=== PATIENT | male | born 1985 | race Caucasian/White ===

== ENCOUNTER 2018-02-13 11:30 | Emergency (ER) | payer MEDICAID ==
[~2018-02-13] VITALS: Ht 172.7 cm; Wt 151.9 kg
[~2018-02-13 11:30] MED LIST: CYCL-1 PO; HYDR-4353 PO; MIRT15TA PO; VENL150C2 PO
[2018-02-13 11:45] VITALS: BP 123/93
[2018-02-13] MEDS ORDERED: ibuprofen 200mg tablet PO ONE (14:15)
== END 2018-02-13 14:43 | disposition home or self-care (01) ==
LOC: ER 11:31
DX: G89.29 Other chronic pain (principal); M54.2 Cervicalgia; G43.909 Migraine, unspecified, not intractable, without status migrainosus; F41.9 Anxiety disorder, unspecified; F32.9 Major depressive disorder, single episode, unspecified; F12.10 Cannabis abuse, uncomplicated; Z59.0 Homelessness; Z56.0 Unemployment, unspecified; Z88.0 Allergy status to penicillin; Z88.1 Allergy status to other antibiotic agents
CPT/HCPCS: 99282

== ENCOUNTER 2018-03-09 18:48 | Emergency (ER) | payer MEDICAID ==
[~2018-03-09] VITALS: Ht 172.7 cm; Wt 69.5 kg
[2018-03-09 18:57] VITALS: BP 116/72
[2018-03-09] MEDS ORDERED: OLANZapine 2.5MG tablet PO SCH (20:00)
[2018-03-09] MEDS ORDERED: OLANZapine 5mg rapidly disint. tablet PO SCH (20:02)
== END 2018-03-09 20:18 | disposition home or self-care (01) ==
LOC: ER 18:49
DX: R44.3 Hallucinations, unspecified (principal); F19.10 Other psychoactive substance abuse, uncomplicated; G89.29 Other chronic pain; F41.9 Anxiety disorder, unspecified; F31.9 Bipolar disorder, unspecified; F17.200 Nicotine dependence, unspecified, uncomplicated; F12.10 Cannabis abuse, uncomplicated; F15.10 Other stimulant abuse, uncomplicated; Z59.0 Homelessness; Z56.0 Unemployment, unspecified; F10.10 Alcohol abuse, uncomplicated; Z88.1 Allergy status to other antibiotic agents; Z88.0 Allergy status to penicillin; Z88.8 Allergy status to other drugs, medicaments and biological substances; Z79.899 Other long term (current) drug therapy
CPT/HCPCS: 99284

== ENCOUNTER 2018-07-15 18:53 | Emergency (ER) | payer MEDICAID ==
[~2018-07-15] VITALS: Ht 172.7 cm; Wt 72.7 kg
[2018-07-15 19:14] VITALS: BP 130/78
[2018-07-15] MEDS ORDERED: proparacaine 0.5% ophthalmic drops 15ml LEFTEYE ONE (20:25)
[2018-07-15] MEDS ORDERED: IBUP-1984 PO (20:53)
[2018-07-15] MEDS ORDERED: ERYT1OIN6 LEFTEYE (20:53)
[2018-07-15] MEDS ORDERED: HYDROcodone/acetaminophen 10/325mg tab PO ONE (21:00)
== END 2018-07-15 21:26 | disposition home or self-care (01) ==
LOC: ER 18:54
DX: S05.02XA Injury of conjunctiva and corneal abrasion without foreign body, left eye, initial encounter (principal); G43.909 Migraine, unspecified, not intractable, without status migrainosus; G89.29 Other chronic pain; F12.90 Cannabis use, unspecified, uncomplicated; F15.90 Other stimulant use, unspecified, uncomplicated; Z98.890 Other specified postprocedural states; Z56.0 Unemployment, unspecified; Z59.0 Homelessness; Z88.1 Allergy status to other antibiotic agents; Z88.0 Allergy status to penicillin; Z88.8 Allergy status to other drugs, medicaments and biological substances; Z79.899 Other long term (current) drug therapy; W22.8XXA Striking against or struck by other objects, initial encounter; Y93.89 Activity, other specified; Y92.89 Other specified places as the place of occurrence of the external cause; Y99.8 Other external cause status
CPT/HCPCS: 99283

== ENCOUNTER 2019-03-26 05:07 | Emergency (ER) | payer MEDICAID ==
[~2019-03-26] VITALS: Ht 172.7 cm; Wt 77.3 kg
[2019-03-26 05:09] VITALS: BP 128/86
--- NOTE | 2019-03-26 05:31 | NUR ---
States he wants to cut his jugulars out just like he tried to cut out his right artery in our parking lot in the past. He states that he "occasionally" uses "all the drugs" including herion and meth. He is currently staying at the [facility].
[2019-03-26 06:19] LABS: BASOPHILS # (AUTO) 0.1 X10'3 (0-0.2); BASOPHILS % (AUTO) 0.8 % (0-1); EOSINOPHILS # (AUTO) 0.2 X10'3 (0-0.9); EOSINOPHILS % (AUTO) 2.3 % (0-6); HEMATOCRIT 49.2 % (42.0-52.0); HEMOGLOBIN 17.6 g/dl (14.0-17.9); LYMPHOCYTES # (AUTO) 2.8 X10'3 (1.1-4.8); LYMPHOCYTES % (AUTO) 31.9 % (21-51); MEAN CORPUSCULAR HEMOGLOBIN 32.6 PG (27.0-31.0); MEAN CORPUSCULAR HGB CONC 35.7 g/dL (33.0-36.5); MEAN CORPUSCULAR VOLUME 91.2 FL (78-98); MEAN PLATELET VOLUME 8.4 FL (7.4-10.4); MONOCYTES # (AUTO) 0.8 X10'3 (0-0.9); MONOCYTES % (AUTO) 8.5 % (2-12); NEUTROPHILS % (AUTO) 56.5 % (42-75); PLATELET COUNT 235 X10'3 (140-440); RED BLOOD COUNT 5.39 X10'6 (4.70-6.10); RED CELL DISTRIBUTION WIDTH 13.9 % (11.5-14.5); WHITE BLOOD COUNT 8.9 X10'3 (4.5-11.0)
[2019-03-26 06:35] LABS: ALANINE AMINOTRANSFERASE 29 U/L (12-78); ALBUMIN 4.1 G/DL (3.4-5.0); ALBUMIN/GLOBULIN RATIO 1.1 (1.1-1.5); ALKALINE PHOSPHATASE 91 IU/L (46-116); ANION GAP 11 (8-16); ASPARTATE AMINO TRANSFERASE 19 U/L (10-37); BILIRUBIN,TOTAL 0.5 MG/DL (0.1-1.0); BLOOD UREA NITROGEN 11 MG/DL (7-18); BUN/CREATININE RATIO 11.5 (5.4-32.0); CALCIUM 8.9 MG/DL (8.5-10.1); CHLORIDE 103 MMOL/L (99-107); CREATININE 0.96 MG/DL (0.60-1.10); ETHANOL 0.094 GM/DL (0.0-0.010); GLUCOSE 82 MG/DL (70-104); POTASSIUM 3.5 MMOL/L (3.5-5.1); SODIUM 141 MMOL/L (135-145); TOTAL CARBON DIOXIDE 27.5 MMOL/L (24-32); eGFR 90 ML/MIN
[2019-03-26 06:38] LABS: URINE AMPHETAMINE SCREEN POSITIVE (Neg); URINE BARBITUATE SCREEN NEGATIVE (Neg); URINE BENZODIAZEPINES SCREEN NEGATIVE (Neg); URINE CANNABINOID SCREEN POSITIVE (Neg); URINE COCAINE SCREEN NEGATIVE (Neg); URINE METHADONE SCREEN NEGATIVE (Neg); URINE OPIATE SCREEN NEGATIVE (Neg); URINE PHENCYCLIDINE SCREEN NEGATIVE (Neg)
--- NOTE | 2019-03-26 07:05 | NUR ---
Assumed care of pt. Pt resting in no apparent distress. Respirations are even and unlabored. Aide is posted at door for line of sight. Pt states he has been having "bad thoughts" and decided to bring himself in for help. He was recently taken off of his risperdal by his psychiatrist at [facility]. He lives at the [facility] and [facility].
--- NOTE | 2019-03-26 07:49 | NUR ---
primary nurse is on break. pt. is resting on his left side and is in no distress.
--- NOTE | 2019-03-26 08:03 | NUR ---
PT PACKET SENT TO [facility].
--- NOTE | 2019-03-26 08:40 | NUR ---
Client is up and eating breakfast
--- NOTE | 2019-03-26 09:28 | NUR ---
LUPILLO FROM THE [facility] OFFICE AT BEDSIDE.
--- NOTE | 2019-03-26 09:29 | NUR ---
[facility] Ened[facility] here evaluating client for 5150 criteria.
--- NOTE | 2019-03-26 11:08 | NUR ---
Pt sitting up in bed. [facility] has finished his evaluation
--- NOTE | 2019-03-26 13:03 | NUR ---
Pt just finished eating lunch and is laying down.
--- NOTE | 2019-03-26 13:38 | NUR ---
Pt asleep on left side in no apparent distress. Respirations are even and unlabored
--- NOTE | 2019-03-26 14:09 | NUR ---
Pt asleep on RIGHT side in no apparent distress. Respirations are even and unlabored
--- NOTE | 2019-03-26 15:33 | NUR ---
Hadley from [facility] speaking with pt again and attempting to call pt's sister.
--- NOTE | 2019-03-26 15:59 | NUR ---
Hadley from [facility] is releasing the hold on the pt and told him to come back if the feelings or thoughts return
[2019-03-26] MEDS ORDERED: mirtazapine 15mg tablet PO SCH (21:00)
== END 2019-03-26 16:14 | disposition home or self-care (01) ==
LOC: ER 05:08
DX: F23 Brief psychotic disorder (principal); F32.9 Major depressive disorder, single episode, unspecified; G43.909 Migraine, unspecified, not intractable, without status migrainosus; G89.29 Other chronic pain; F41.9 Anxiety disorder, unspecified; F15.90 Other stimulant use, unspecified, uncomplicated; F12.90 Cannabis use, unspecified, uncomplicated; F10.99 Alcohol use, unspecified with unspecified alcohol-induced disorder; Z59.0 Homelessness; Z56.0 Unemployment, unspecified; Z88.8 Allergy status to other drugs, medicaments and biological substances; Z88.1 Allergy status to other antibiotic agents; Z88.0 Allergy status to penicillin; Z79.899 Other long term (current) drug therapy; Y90.9 Presence of alcohol in blood, level not specified
CPT/HCPCS: 36415; 80053; 80305; 80320; 84443; 85025; 99284

== ENCOUNTER 2019-09-04 00:40 | Emergency (ER) | payer MEDICAID ==
[~2019-09-04] VITALS: Ht 172.7 cm; Wt 70.5 kg
[~2019-09-04 00:40] MED LIST changes: -CYCL-1 PO; -HYDR-4353 PO; -VENL150C2 PO
[2019-09-04 00:45] VITALS: BP 116/78
[2019-09-04] MEDS ORDERED: MIRT30TA3 PO (02:26)
[2019-09-04] MEDS ORDERED: LURA80TA3 PO (02:26)
--- NOTE | 2019-09-04 02:26 | NUR ---
PT STATES HE HASNT TAKEN HIS PRESCRIBED LATUDA OR REMERON PER [facility] TO "SEE HOW HE DID WITHOUT THEM."
[2019-09-04 02:31] LABS: BASOPHILS % (AUTO) 0.7 % (0-1); EOSINOPHILS # (AUTO) 0.3 X10'3 (0-0.9); EOSINOPHILS % (AUTO) 4.9 % (0-6); HEMATOCRIT 41.3 % (42.0-52.0); HEMOGLOBIN 14.2 g/dl (14.0-17.9); LYMPHOCYTES # (AUTO) 2.8 X10'3 (1.1-4.8); LYMPHOCYTES % (AUTO) 51.2 % (21-51); MEAN CORPUSCULAR HEMOGLOBIN 32.3 PG (27.0-31.0); MEAN CORPUSCULAR HGB CONC 34.4 g/dL (33.0-36.5); MEAN CORPUSCULAR VOLUME 93.8 FL (78-98); MEAN PLATELET VOLUME 8.1 FL (7.4-10.4); MONOCYTES # (AUTO) 0.4 X10'3 (0-0.9); MONOCYTES % (AUTO) 6.7 % (2-12); NEUTROPHILS % (AUTO) 36.5 % (42-75); PLATELET COUNT 255 X10'3 (140-440); RED CELL DISTRIBUTION WIDTH 13.4 % (11.5-14.5); WHITE BLOOD COUNT 5.5 X10'3 (4.5-11.0)
[2019-09-04 02:33] LABS: URINE AMPHETAMINE SCREEN NEGATIVE (Neg); URINE BARBITUATE SCREEN NEGATIVE (Neg); URINE BENZODIAZEPINES SCREEN NEGATIVE (Neg); URINE CANNABINOID SCREEN POSITIVE (Neg); URINE COCAINE SCREEN NEGATIVE (Neg); URINE METHADONE SCREEN NEGATIVE (Neg); URINE OPIATE SCREEN NEGATIVE (Neg); URINE PHENCYCLIDINE SCREEN NEGATIVE (Neg)
[2019-09-04 02:42] LABS: ALANINE AMINOTRANSFERASE 25 U/L (12-78); ALBUMIN 3.7 G/DL (3.4-5.0); ALBUMIN/GLOBULIN RATIO 1.2 (1.1-1.5); ALKALINE PHOSPHATASE 78 IU/L (46-116); ANION GAP 6 (8-16); ASPARTATE AMINO TRANSFERASE 16 U/L (10-37); BILIRUBIN,TOTAL 0.3 MG/DL (0.1-1.0); BLOOD UREA NITROGEN 10 MG/DL (7-18); CALCIUM 8.2 MG/DL (8.5-10.1); CHLORIDE 111 MMOL/L (99-107); CREATININE 1.11 MG/DL (0.60-1.10); ETHANOL 0.176 GM/DL (0.0-0.010); GLUCOSE 99 MG/DL (70-104); POTASSIUM 3.9 MMOL/L (3.5-5.1); SODIUM 147 MMOL/L (135-145); TOTAL CARBON DIOXIDE 29.6 MMOL/L (24-32); TOTAL PROTEIN 6.9 G/DL (6.4-8.2); eGFR 75 ML/MIN
[2019-09-04 02:54] LABS: TOTAL CELLS COUNTED 100
[2019-09-04 02:55] LABS: PLATELET ESTIMATE NORMAL
--- NOTE | 2019-09-04 06:49 | NUR ---
PT RESTING ON LEFT SIDE RR EQUAL AND UNLABORED. ASSUMED CARE OF PT AT CHANGE OF SHIFT. NO REPORT GIVEN.
--- NOTE | 2019-09-04 07:39 | NUR ---
MED REC FAXED
[2019-09-04 08:13] LABS: CLARITY,URINE SLIGHTLY CLOUDY (Clear); COLOR,URINE YELLOW (Yellow); GLUCOSE, URINE NEGATIVE (Neg); KETONES,URINE NEGATIVE (Neg); LEUKOCYTE ESTERASE ,URINE NEGATIVE (Neg); NITRITES, URINE NEGATIVE (Neg); OCCULT BLOOD,URINE LARGE (Neg); PROTEIN,URINE NEGATIVE (Neg); UROBILINOGEN,URINE 0.2 E.U/dL (0.2-1.0)
[2019-09-04 08:27] LABS: UA COLLECTION TYPE CLN CATCH MIDSTREAM
[2019-09-04 08:29] LABS: WBC,URINE 0-4 /HPF (0-4)
[2019-09-04 08:30] LABS: CAL OXALATE CRYSTALS 3+ /HPF (NEGATIVE)
[2019-09-04 08:32] LABS: BACTERIA,URINE NONE SEEN /HPF (Neg); RBC,URINE 0-2 /HPF (0-2)
[2019-09-04 08:33] LABS: SQUAMOUS EPITHELIAL CELL,UR FEW /LPF (FEW)
--- NOTE | 2019-09-04 08:56 | NUR ---
PT RESTING ON LEFT SIDE RR EQUAL AND UNLABORED. EYES CLOSED
--- NOTE | 2019-09-04 12:15 | NUR ---
Breaking primary RN. Pt sleeping on left side. Respirations unlabored. NAD
--- NOTE | 2019-09-04 13:10 | NUR ---
PT SITTING UP IN BED EATING LUNCH NO NEEDS AT THIS TIME
--- NOTE | 2019-09-04 14:57 | NUR ---
PTS STORED MEDS RETURNED TO HIM PRIOR TO DC
[2019-09-04] MEDS ORDERED: mirtazapine 15mg tablet PO SCH (21:00)
[2019-09-04] MEDS ORDERED: lurasidone 60mg tablet PO SCH (21:00)
[2019-09-04] MEDS ORDERED: lurasidone 20mg tablet PO SCH (21:00)
== END 2019-09-04 15:10 | disposition home or self-care (01) ==
LOC: ER 00:41
DX: F10.129 Alcohol abuse with intoxication, unspecified (principal); F32.9 Major depressive disorder, single episode, unspecified; G43.909 Migraine, unspecified, not intractable, without status migrainosus; G89.29 Other chronic pain; F41.9 Anxiety disorder, unspecified; F20.9 Schizophrenia, unspecified; Z59.0 Homelessness; Z56.0 Unemployment, unspecified; Z72.89 Other problems related to lifestyle; Z98.890 Other specified postprocedural states; Z88.1 Allergy status to other antibiotic agents; Z88.0 Allergy status to penicillin; Z79.899 Other long term (current) drug therapy; Y90.0 Blood alcohol level of less than 20 mg/100 ml
CPT/HCPCS: 36415; 80053; 80305; 80320; 81001; 84443; 85025; 99283

== ENCOUNTER 2019-09-12 16:49 | Emergency (ER) | payer MEDICAID ==
[~2019-09-12] VITALS: Ht 172.7 cm; Wt 72.7 kg
[~2019-09-12 16:49] MED LIST changes: +LURA80TA3 PO; -MIRT15TA PO; +MIRT30TA3 PO
[2019-09-12 17:08] VITALS: BP 117/74
== END 2019-09-12 18:50 | disposition home or self-care (01) ==
LOC: ER 16:49
DX: S60.041A Contusion of right ring finger without damage to nail, initial encounter (principal); M79.644 Pain in right finger(s); G43.909 Migraine, unspecified, not intractable, without status migrainosus; G89.29 Other chronic pain; F41.9 Anxiety disorder, unspecified; F31.9 Bipolar disorder, unspecified; F20.9 Schizophrenia, unspecified; Z98.890 Other specified postprocedural states; Z72.89 Other problems related to lifestyle; Z56.0 Unemployment, unspecified; Z59.0 Homelessness; Z88.1 Allergy status to other antibiotic agents; Z88.0 Allergy status to penicillin; Z79.899 Other long term (current) drug therapy; W18.39XA Other fall on same level, initial encounter; Y93.55 Activity, bike riding; Y92.89 Other specified places as the place of occurrence of the external cause; Y99.8 Other external cause status
CPT/HCPCS: 29130; 73140; 99284

== ENCOUNTER 2019-09-23 03:00 | Emergency (ER) | payer MEDICAID ==
[~2019-09-23] VITALS: Ht 175.3 cm; Wt 68.2 kg
--- NOTE | 2019-09-23 03:33 | NUR ---
nahomy merritt is on the way to take pt to [facility]
== END 2019-09-23 03:30 | disposition home or self-care (01) ==
LOC: ER 03:01
DX: F91.9 Conduct disorder, unspecified (principal); G89.29 Other chronic pain; F41.9 Anxiety disorder, unspecified; F31.9 Bipolar disorder, unspecified; F20.9 Schizophrenia, unspecified; Z98.890 Other specified postprocedural states; Z59.0 Homelessness; Z56.0 Unemployment, unspecified; Z88.0 Allergy status to penicillin; Z88.1 Allergy status to other antibiotic agents; Z79.899 Other long term (current) drug therapy
CPT/HCPCS: 99284

== ENCOUNTER 2021-03-06 18:53 | Emergency (ER) | payer MEDICAID ==
[~2021-03-06] VITALS: Ht 172.7 cm; Wt 72.0 kg
[2021-03-06] MEDS ORDERED: ketorolac trometh. 30mg/ml inj. IM ONE (21:10)
[2021-03-06] MEDS ORDERED: IBUP-1984 PO (21:39)
[2021-03-06 21:54] VITALS: BP 130/87
== END 2021-03-06 21:56 | disposition home or self-care (01) ==
LOC: ER 18:53
DX: M25.511 Pain in right shoulder (principal); G43.909 Migraine, unspecified, not intractable, without status migrainosus; F31.9 Bipolar disorder, unspecified; F20.9 Schizophrenia, unspecified; G89.29 Other chronic pain; Z59.00 Homelessness unspecified; Z56.0 Unemployment, unspecified; Z88.0 Allergy status to penicillin; Z88.1 Allergy status to other antibiotic agents
CPT/HCPCS: 73030; 96372; 99283; J1885

== ENCOUNTER 2021-08-03 15:19 | Emergency (ER) | payer MEDICAID ==
[~2021-08-03] VITALS: Ht 172.7 cm; Wt 75.0 kg
[~2021-08-03 15:19] MED LIST changes: +LURA80TA2 PO; -LURA80TA3 PO
[2021-08-03 15:24] VITALS: BP 122/75
--- NOTE | 2021-08-03 15:47 | NUR ---
not in lobby
--- NOTE | 2021-08-03 15:56 | NUR ---
not in lobby
[2021-08-03] MEDS ORDERED: CLIN300C71 PO (17:48)
[2021-08-03] MEDS ORDERED: IBUP-1986 PO (17:48)
== END 2021-08-03 17:55 | disposition home or self-care (01) ==
LOC: ER 15:19
DX: K02.9 Dental caries, unspecified (principal); K08.89 Other specified disorders of teeth and supporting structures; G43.909 Migraine, unspecified, not intractable, without status migrainosus; G89.29 Other chronic pain; F17.200 Nicotine dependence, unspecified, uncomplicated; F12.90 Cannabis use, unspecified, uncomplicated; Z72.89 Other problems related to lifestyle; Z56.0 Unemployment, unspecified; Z59.00 Homelessness unspecified; Z88.1 Allergy status to other antibiotic agents; Z88.8 Allergy status to other drugs, medicaments and biological substances; Z88.0 Allergy status to penicillin; Z79.2 Long term (current) use of antibiotics; Z79.899 Other long term (current) drug therapy
CPT/HCPCS: 99283

== ENCOUNTER 2021-12-03 19:36 | Emergency (ER) | payer MEDICAID ==
[~2021-12-03] VITALS: Ht 172.7 cm; Wt 73.0 kg
[~2021-12-03 19:36] MED LIST changes: +IBUP-1986 PO
[2021-12-03 20:05] VITALS: BP 122/74
[2021-12-04] MEDS ORDERED: CLIN150C2 PO (22:50)
== END 2021-12-04 03:14 | disposition left against medical advice (07) ==
LOC: ER 19:37
DX: R07.0 Pain in throat (principal); Z53.21 Procedure and treatment not carried out due to patient leaving prior to being seen by health care provider

== ENCOUNTER 2021-12-04 19:50 | Emergency (ER) | payer MEDICAID ==
[~2021-12-04] VITALS: Ht 172.7 cm; Wt 73.7 kg
[2021-12-04 20:25] VITALS: BP 122/69
[2021-12-04] MEDS ORDERED: CLIN150C2 PO (22:50)
[2021-12-04] MEDS ORDERED: ibuprofen tablet 400 MG TABLET PO ONE (22:50)
[2021-12-04] MEDS ORDERED: ondansetron 4mg rapidly disintigrating tab PO ONE (22:50)
[2021-12-04] MEDS ORDERED: clindamycin 150mg capsule PO ONE (22:50)
== END 2021-12-04 23:10 | disposition home or self-care (01) ==
LOC: ER 19:51
DX: J02.9 Acute pharyngitis, unspecified (principal); G43.909 Migraine, unspecified, not intractable, without status migrainosus; G89.29 Other chronic pain; F41.9 Anxiety disorder, unspecified; F31.9 Bipolar disorder, unspecified; F20.9 Schizophrenia, unspecified; F12.90 Cannabis use, unspecified, uncomplicated; Z98.890 Other specified postprocedural states; Z72.89 Other problems related to lifestyle; Z56.0 Unemployment, unspecified; Z59.00 Homelessness unspecified; Z88.1 Allergy status to other antibiotic agents; Z88.0 Allergy status to penicillin; Z88.8 Allergy status to other drugs, medicaments and biological substances; Z79.2 Long term (current) use of antibiotics; Z79.899 Other long term (current) drug therapy
CPT/HCPCS: 99284

== ENCOUNTER 2022-12-13 05:50 | Emergency (ER) | payer MEDICAID ==
[~2022-12-13 05:50] MED LIST changes: +MIRT-140 PO; -MIRT30TA3 PO; +NALO4SPR BOTHNARES
--- NOTE | 2022-12-13 07:17 | NUR ---
NIL at 0500, [id number] and 0615
== END 2022-12-13 07:18 | disposition left against medical advice (07) ==
LOC: ER 05:51
DX: M25.529 Pain in unspecified elbow (principal); Z53.21 Procedure and treatment not carried out due to patient leaving prior to being seen by health care provider
CPT/HCPCS: 99281

== ENCOUNTER 2023-08-13 21:08 | Emergency (ER) | payer MEDICAID ==
[~2023-08-13] VITALS: Ht 172.7 cm; Wt 70.0 kg
[2023-08-13 21:13] VITALS: BP 132/84; PULSE 125; RESP 20; TEMP 98.8; O2SAT 96
[2023-08-13] MEDS ORDERED: ketorolac trometh inj. 60 MG/2 ML VIAL IM ONE (21:30)
[2023-08-13] MEDS ORDERED: CLIN300C54 PO (21:35)
[2023-08-13] MEDS ORDERED: MUPI15CR12 TOP (21:35)
[2023-08-13] MEDS: ketorolac tromethamine 15mg/ml inj. IM ONE (21:54)
== END 2023-08-13 21:59 | disposition home or self-care (01) ==
LOC: ER 21:09
DX: K08.89 Other specified disorders of teeth and supporting structures (principal); K02.9 Dental caries, unspecified; G43.909 Migraine, unspecified, not intractable, without status migrainosus; L02.413 Cutaneous abscess of right upper limb; F12.90 Cannabis use, unspecified, uncomplicated; Z88.1 Allergy status to other antibiotic agents; Z88.8 Allergy status to other drugs, medicaments and biological substances; Z79.1 Long term (current) use of non-steroidal anti-inflammatories (NSAID); Z79.899 Other long term (current) drug therapy
CPT/HCPCS: 96372; 99283; J1885